=== PATIENT | male | born 1965 | race Caucasian/White ===

== ENCOUNTER 2017-04-28 16:29 | Emergency (ER) | payer BC, OTHER ==
[~2017-04-28] VITALS: Ht 182.9 cm; Wt 90.7 kg
[2017-04-28 18:58] LABS: ABSOLUTE NEUTROPHILS 5.4 thou/uL (1.4-8.2); BASOPHILS 0.4 % (0.0-2.0); EOSINOPHILS 0.9 % (0.0-3.0); HEMATOCRIT 41.6 % (42.0-52.0); HEMOGLOBIN 13.9 gm/dL (14.0-18.0); LYMPHOCYTES 15.7 % (24.0-44.0); MCH 29.4 pg (26.0-34.0); MCHC 33.5 g/dL (28.0-37.0); MCV 87.9 fL (80.0-100.0); MONOCYTES 9.6 % (1.0-8.0); PLATELET COUNT 222 thou/uL (150-400); POLYS 73.4 % (36.0-66.0); RBC 4.73 mil/uL (4.50-6.00); RDW 13.5 % (10.5-14.5); WBC 7.4 thou/uL (4.0-11.0)
[2017-04-28] MEDS ORDERED: SYNTHROID100 MCG PO (18:58)
[2017-04-28] MEDS ORDERED: XARELTO20 MG PO (18:58)
[2017-04-28] MEDS ORDERED: LIPITOR80 MG PO (18:58)
[2017-04-28 19:01] LABS: MANUAL DIFF NO
[2017-04-28 19:07] LABS: CALCIUM 9.6 mg/dL (8.5-10.1); POTASSIUM 3.7 mmol/L (3.5-5.1)
[2017-04-28] MEDS ORDERED: NORCO 5-325 TA1 EACH PO (19:21)
[2017-04-28] MEDS ORDERED: KEFLEX500 MG PO (19:21)
[2017-04-28 19:38] VITALS: BP 131/83
== END 2017-04-28 19:39 | disposition home or self-care (01) ==
LOC: ER 16:29
PROVIDERS: Nurse Practitioner
DX: K06.8 Other specified disorders of gingiva and edentulous alveolar ridge (principal); K04.7 Periapical abscess without sinus; F10.99 Alcohol use, unspecified with unspecified alcohol-induced disorder